=== PATIENT | female | born 1955 | race African-American/Black ===

== ENCOUNTER 2020-04-04 11:13 | Emergency (ER) | payer SELFPAY ==
[~2020-04-04] VITALS: Ht 162.6 cm; Wt 92.5 kg
[2020-04-04 13:43] VITALS: BP 176/90
== END 2020-04-04 13:43 | disposition home or self-care (01) ==
LOC: ED 11:13
DX: M71.21 Synovial cyst of popliteal space [Baker], right knee (principal); I10 Essential (primary) hypertension